=== PATIENT | male | born 1980 | race American Indian/Alaskan Native ===

== ENCOUNTER 2019-07-24 10:15 | Outpatient (CLI) | payer BC ==
--- NOTE | 2019-07-24 11:13 | Cat Scan Report ---
CT ABDOMEN AND PELVIS WITHOUT CONTRAST HISTORY: Enlarged prostate. COMPARISON: None TECHNIQUE: Routine abdominal and pelvic CT exam performed without contrast. Lack of intravenous cont rast limits evaluation of the vascular and solid organs.. All CT scans at this location are performed using CT dose reduction for ALARA by means of automated exposure control. FINDINGS: CT ABDOMEN: Lung Bases: No significant abnormality. Liver: No significant abnormality. Biliary: No significant abnormality. Spleen: No significant abnormality. Unenlarged. Pancreas: No significant abnormality. Adrenals: No significant abnormality. Kidneys: No significant abnormality. Lymphatics: No lymphadenopathy. Vasculature: No significant abnormality. Bowel/Peritoneum: No significant abnormality. No free air. No free fluid. Normal appendix. CT PELVIC: : The urinary bladder appears normal. The prostate appears normal in size. There are no pelvic mass es. Lymphatics: No lymphadenopathy. Osseous Structures: No aggressive appearing osseous lesions. There is a small Schmorl's node in the i nferior endplate of L3. Additional Findings: None IMPRESSION: 1. No significant abnormality. The prostate appears grossly normal. Signer Name: Vicente Garcia MD Signed: 07/24/2019 11:09 AM Workstation Name: [id number]
== END 2019-07-24 10:16 | disposition home or self-care (01) ==
LOC: CT 10:15
PROVIDERS: ATTEND Urology
DX: M51.46 Schmorl's nodes, lumbar region (principal); N40.0 Benign prostatic hyperplasia without lower urinary tract symptoms
CPT/HCPCS: 74176